=== PATIENT | male | born 1985 | race Caucasian/White ===

== ENCOUNTER 2018-02-12 14:13 | Outpatient (CLI) | payer OTHER ==
--- NOTE | 2018-02-12 16:15 | XRAY Report ---
TWO-VIEW LEFT LOWER LE02/12/2018 CLINICAL INDICATION: Pain. FINDINGS: Frontal and lateral views of the left lower leg demonstrate no evidence of fracture or dislocation. No radiopaque foreign body is appreciated in the soft tissues. IMPRESSION: NORMAL LEFT LOWER LEG. TD: 02/12/2018 16:14
== END 2018-02-12 14:14 | disposition home or self-care (01) ==
LOC: DI.N 14:13
PROVIDERS: ATTEND Physician Assistant Medical
DX: M79.605 Pain in left leg (principal)

== ENCOUNTER 2018-05-15 07:38 | Emergency (ER) | payer OTHER ==
[2018-05-15 07:46] VITALS: BP 141/91
[2018-05-15] MEDS ORDERED: KETOROLAC 60 MG/2 ML VIAL IM STA (08:20)
[2018-05-15] MEDS ORDERED: LIDOCAINE PATCH 5% TOP PRN (08:21)
[2018-05-15] MEDS ORDERED: CYCLOBENZAPRINE 10 MG TABLET PO STA (08:21)
[2018-05-15] MEDS ORDERED: oxyCODONE 5 MG TABLET PO STA (08:21)
--- NOTE | 2018-05-15 08:29 | ED Physician Documentation ---
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[employer]) he develeoped severe low back pain it has worsened over several days despite motrin and is now severe no specific injury no fever nor surgery dental work IV/IM meds drugs mid abd pain rad from back some rad to thighs no numbness no weakness no dysuria, hematuria retention incon no saddle anesthesia Review of Systems Constitutional: denies: Fever, Chills Cardiac: denies: Chest pain / pressure Respiratory: denies: Dyspnea GI: denies: Abdominal Pain : denies: Dysuria, Hesitancy, Unable to Void, Incontinent, Hematuria Skin: denies: Rash Musculoskeletal: reports: Back pain Neurologic: denies: Focal weakness, Numbness Endocrine: denies: Easy bruising / bleeding Immunocompromised: denies: Immunocompromised PD PAST MEDICAL HISTORY - Past Medical History Past Medical History: No - Past Surgical History Past Surgical History: No - Present Medications Home Medications: Ambulatory Orders Medication Instructions Recorded Confirmed Cetirizine [ZyrTEC] 10 mg PO DAILY 03/30/16 03/30/16 Cyclobenzaprine [Flexeril] 10 mg PO TID PRN #20 tablet 05/15/18 Ibuprofen [Motrin] 800 mg PO Q8H PRN #30 tablet 05/15/18 Lidocaine Patch 5% [Lidoderm Patch] 1 each TOP DAILY PRN #10 patch 05/15/18 - Allergies Allergies/Adverse Reactions: Allergies Allergy/AdvReac Type Severity Reaction Status Date / Time No Known Drug Allergies Allergy Verified 05/15/18 07:46 - Social History Does the pt smoke?: No Smoking Status: Never smoker Does the pt drink ETOH?: Yes Does the pt have substance abuse?: No - Immunizations Immunizations are current?: Yes PD ED PE NORMAL - Vitals Vital signs reviewed: Yes - Cardiac Cardiac: RRR - Respiratory Respiratory: No respiratory distress, Clear bilaterally - Abdomen Abdomen: Soft, Non tender, Other (no pulsatile mass) - Back Back: No spinal TTP (diffuse low back soft tissue TTP and limited ROM, no focal spine redness warmth swelling TTP, limited ROM 2/2 spasm) - Derm Derm: Normal color - Neuro Neuro: No motor deficit, No sensory deficit, Other (hip flex knee ext foot dorsi plantar and great toe ect 5/5, denies saddle anesthesia, no numbness, no clonus, neg SLR, patellar DTR 1+/4) Results - Vitals Vitals: Vital Signs - 24 hr 05/15/18 07:43 Temperature 36.8 C Heart Rate 80 Respiratory 16 Rate Blood Pressure 141/91 H O2 Saturation 98 Oxygen O2 Source Room air PD MEDICAL DECISION MAKING - Sepsis Event Vital Signs: Vital Signs - 24 hr 05/15/18 07:43 Temperature 36.8 C Heart Rate 80 Respiratory 16 Rate Blood Pressure 141/91 H O2 Saturation 98 Oxygen O2 Source Room air Departure - Departure Disposition: 01 Home, Self Care Clinical Impression: Back pain Qualifiers: Back pain location: low back pain Chronicity: acute Back pain laterality: bilateral Sciatica presence: with sciatica Sciatica laterality: bilateral sciatica Qualified Code(s): M54.42 - Lumbago with sciatica, left side; M54.41 - Lumbago with sciatica, right side; M54.41 - Lumbago with sciatica, right side Condition: Good Instructions: ED Neck Back Pain General, ED Sciatica Follow-Up: [facility] [Provider Group] Prescriptions: Cyclobenzaprine [Flexeril] 10 mg PO TID PRN #20 tablet PRN Reason: Spasms Ibuprofen [Motrin] 800 mg PO Q8H PRN #30 tablet PRN Reason: Pain Lidocaine Patch 5% [Lidoderm Patch] 1 each TOP DAILY PRN #10 patch PRN Reason: Pain Comments: Based on your exam I think the pain is from muscle spasms in your low back It does not seem the pain is due to a spine infection, aneurysm, kidney infection or stone, or a herniated disk. I have prescribed medications to ease the pain. And I recommend you not lift anything more than 10 lb for several days. It can take up to two weeks for back spasm to resolved but you should be a little better every day If you are worse or develop new symptoms, please come back for a recheck
== END 2018-05-15 09:00 | disposition home or self-care (01) ==
LOC: ED 07:38
DX: M54.42 Lumbago with sciatica, left side (principal); M54.41 Lumbago with sciatica, right side
CPT/HCPCS: 96372; 99283; A9270

== ENCOUNTER 2019-03-05 11:14 | Emergency (ER) | payer OTHER ==
[2019-03-05 11:27] VITALS: BP 144/92
--- NOTE | 2019-03-05 12:35 | ED Physician Documentation ---
History of Present Illness - Stated complaint Stated Complaint: FACE PX - Chief complaint Chief Complaint: Heent - History obtained from History obtained from: Patient - History of Present Illness Timing: How many days ago (2) - Additonal information Additional information: This is a 33-year-old man who presents with his complains that he may have a sinus infection. He has bad seasonal allergies and routinely take Zyrtec which he started 2 months ago and uses Flonase 2-3 times a week but yesterday he started to get this pain in the right side of his cheek and around the eye he took a nap and it seemed to get better he woke up this morning with feeling like his upper teeth were numb on the right side he had a lot of pressure in the face and his eye was hurting started out at about a 1-2 out of 10 but it notes now up to over an 8 out of 10. He took 400 mg of ibuprofen around 720 this morning it did nothing to help alleviate the pain. Said very minimal mucus from the nose been clear. No blood in it. He has some pain that radiates into the right. He has had no blurry or double vision. Denies sore throat, fever, cough or history of asthma. He is and works at a desk job. Review of Systems Constitutional: denies: Fever Eyes: denies: Loss of vision, Decreased vision Ears: reports: Ear pain (Intermittent into the right ear) Nose: reports: Congestion, Sinus pressure / pain (Right facial). denies: Rhinorrhea / runny nose, Epistaxis Throat: reports: Dental pain / toothache (Right upper teeth) Respiratory: denies: Cough PD PAST MEDICAL HISTORY - Past Surgical History Past Surgical History: No - Present Medications Home Medications: Ambulatory Orders Medication Instructions Recorded Confirmed Cetirizine [ZyrTEC] 10 mg PO DAILY 03/30/16 03/05/19 Ibuprofen [Motrin] 800 mg PO Q8H PRN #30 tablet 05/15/18 03/05/19 Amoxicillin 500 mg PO TID 10 Days capsule 03/05/19 Fluticasone [Flonase] 1 - 2 spray INH PRN 03/05/19 Fluticasone [Flonase] 1 - 2 sprays KRIS BID #1 bottle 03/05/19 - Allergies Allergies/Adverse Reactions: Allergies Allergy/AdvReac Type Severity Reaction Status Date / Time No Known Drug Allergies Allergy Verified 03/05/19 11:27 - Social History Does the pt smoke?: No Smoking Status: Never smoker Does the pt drink ETOH?: Yes Does the pt have substance abuse?: No - Immunizations Immunizations are current?: Yes PD ED PE NORMAL - Vitals Vital signs reviewed: Yes - General General: Alert and oriented X 3, No acute distress, Well developed/nourished - HEENT HEENT: Atraumatic, PERRL, EOMI, Moist mucous membranes, Pharynx benign, Other (TMs could not be visualized bilaterally because of cerumen impaction. The nasal mucosa is very boggy and the right nostril was essentially completely occluded because of it. There is just a clear drainage. Oropharynx is clear without tonsillar enlargement or exudate.) - Neck Neck: Supple, no meningeal sign, No adenopathy - Cardiac Cardiac: RRR - Respiratory Respiratory: No respiratory distress Results - Vitals Vitals: Vital Signs - 24 hr 03/05/19 11:24 Temperature 36.8 C Heart Rate 78 Respiratory 16 Rate Blood Pressure 144/92 H O2 Saturation 99 Oxygen O2 Source Room air PD MEDICAL DECISION MAKING - ED course Complexity details: d/w patient, d/w family ED course: I do feel the patient's pain is coming from his sinus and pressure in the sinus. There is no evidence of entrapment. He is not febrile and has not had any mucopurulent drainage. We are going to try conservative treatment initially with Afrin and decongestants along with his Zyrtec. And making sure that he is taking the Flonase on a consistent basis. Ibuprofen [id number] at higher dosing for pain relief. We discussed using a [place] pot he does not think he is going to be able to do that he has not had success with it in the past.I did provide a back-up prescription for amoxicillin in case he develops fever or thick purulent drainage. He states understanding. Departure - Departure Disposition: 01 Home, Self Care Clinical Impression: Sinusitis Qualifiers: Sinusitis location: maxillary Chronicity: acute Recurrence: not specified as recurrent Qualified Code(s): J01.00 - Acute maxillary sinusitis, unspecified Condition: Good Instructions: ED Sinusitis No Abx Follow-Up: Jessica,Ron, PA-C [Primary Care Provider] - Prescriptions: Amoxicillin 500 mg PO TID 10 Days capsule Fluticasone [Flonase] 1 - 2 sprays KRIS BID #1 bottle Comments: Take ibuprofen 4 tablets [id number] every 8 hours with food as needed for pain for the next 2 to 3 days. Steam can also help open up the sinuses but I would start using Afrin2 times a day for the next 2 to 3 days and start using your Flonase on a consistent daily basis. Continue with the Zyrtec daily. Consider showering before bedtime and using sinus rinse to help clear allergens from your nasal passages. I have given you a prescription for back-up amoxicillin if you get a fever or have thick purulent drainage. Follow-up with your primary care provider as needed for reevaluation. Return if your symptoms are worsening or other problems arise.
== END 2019-03-05 12:48 | disposition home or self-care (01) ==
LOC: ED 11:14
DX: J01.00 Acute maxillary sinusitis, unspecified (principal); H61.23 Impacted cerumen, bilateral
CPT/HCPCS: 99283

== ENCOUNTER 2021-07-13 07:00 | Outpatient (CLI) | payer OTHER | END 2021-07-13 23:59 | disposition home or self-care (01) | LOC: COV 07:00 | PROVIDERS: ATTEND Family Medicine | DX: R05.9 Cough, unspecified (principal); Z20.822 Contact with and (suspected) exposure to COVID-19 ==